=== PATIENT | female | born 1950 | race African-American/Black ===

== ENCOUNTER 2017-01-08 11:45 | Inpatient (IN) ==
[2017-01-08] MEDS ORDERED: DUONEB (A & A) INH ONE ×2 (11:56→12:30)
[2017-01-08] MEDS ORDERED: SOLU-MEDROL IV ONE (12:05)
[2017-01-08] MEDS ORDERED: ASPIRIN PO STA (12:05)
[2017-01-08 12:23] LABS: ALLEN TEST YES; BE 5.8 mmoll (-3.0-3.0); BLOOD TYPE ARTERIAL; DRAW SITE R RADIAL; METHB 0.9 % (0.0-1.5); O2(CT) 16.3 mL/dL (15.0-23.0); PCO2(98.6) 44 mmHg (35-45); PO2(98.6) 51 mmHg (60-100); SAMPLE BLOOD; SAO2 90.7 % (95.0-100.0); THB 13.2 g/dL (11.5-17.4); pH(98.6) 7.45 (7.35-7.45)
[2017-01-08 12:24] LABS: MODALITY ROOM AIR
[2017-01-08] MEDS ORDERED: PULMICORT INH ONE (12:30)
[2017-01-08 12:47] LABS: MANUAL DIFF NEEDED? NO
[2017-01-08 12:58] LABS: INR 0.93; PROTIME 9.7 Seconds (9.2-11.7); PTT 23.4 Seconds (22.0-36.0)
[2017-01-08 13:00] LABS: BASO% 0.5 % (0.0-0.8); EOS# 0.29 X1000 (0.0-0.7); EOS% 4.9 % (0.0-10.0); HEMATOCRIT 39.7 % (37.0-47.0); HEMOGLOBIN 12.6 g/dL (12.0-16.0); LYMPH# 1.68 X1000 (1.2-3.4); LYMPH% 28.6 % (20.5-51.1); MCH 29.4 PG (27-31); MCHC 31.7 g/dL (33-37); MCV 92.8 FL (81-99); MONO# 0.51 X1000 (0.11-0.59); MONO% 8.7 % (1.7-9.3); MPV 10.1 FL (7.4-10.4); NEUT% 57.3 % (42.2-75.2); PLT 245 X1000 (130-400); RBC 4.28 XMIL (4.2-5.4)
[2017-01-08 13:08] LABS: AGAP 14; ALBUMIN 4.2 g/dL (3.5-5.0); ALKALINE PHOSPHATASE 71 U/L (32-104); BUN 14 mg/dL (8-22); CALCIUM 9.2 mg/dL (8.8-10.2); CHLORIDE 101 mmol/L (98-107); CK PROFILE 162 U/L (24-173); COSMO 286; GOT 15 U/L (10-30); GPT 10 U/L (10-36); MAGNESIUM 2.1 mg/dL (1.5-2.7); POTASSIUM 4.1 mmol/L (3.5-5.1); SODIUM 144 mmol/L (136-145); TCO2 29 mmol/L (25-35); TOTAL BILIRUBIN 0.42 mg/dL (0.20-1.00); TOTAL PROTEIN 7.1 g/dL (6.3-8.3)
--- NOTE | 2017-01-08 13:18 | Diag Imaging Result Doc PS360 ---
EXAM: CHEST-2 VIEWS HISTORY: SOB TECHNIQUE: Two views of the chest COMMENT: The inspiration is less optimal than on the previous study of 10/01/2016. There is a hiatal hernia. Overall there has been no significant change since the previous study. IMPRESSION: Stable chest. Electronically signed by Linden Delgado 01/08/2017 1:15 PM
[2017-01-08 13:21] LABS: URINE CULTURE NEEDED? NO; URINE MICRO REVIEW NEEDED? NO; URINE SOURCE CLEAN CATCH
[2017-01-08 13:32] LABS: BILIRUBIN URINE NEGATIVE (NEGATIVE); BLOOD URINE NEGATIVE (NEGATIVE); COLOR STRAW; GLUCOSE URINE NEGATIVE (NEGATIVE); LEUKOCYTES URINE NEGATIVE (NEGATIVE); NITRITE URINE NEGATIVE (NEGATIVE); PH URINE 7.5; PROTEIN URINE NEGATIVE (NEGATIVE); TURBIDITY URINE CLEAR (CLEAR); UROBILINOGEN URINE NORMAL (NORMAL)
[2017-01-08 13:34] LABS: UR EPITHELIAL CELLS <10 /HPF (<10); URINE BACTERIA NEGATIVE /HPF; URINE RBC <10 /HPF (<10); URINE WBC <10 /HPF (<10)
--- NOTE | 2017-01-08 13:39 | ED EKG INTERP ---
This chart was entered by Tali Bloom Scribe, acting as scribe for Mabel Roberts MD. EKG Interpretation - EKG Time of EKG reading by physician:: 12:02 EKG Read and Signed by:: Mabel Roberts EKG Interpretation (*Must complete 3 of following elements*): Abnormal Rate: 94 Rhythm: normal sinus rhythm ST Wave: non-specific ST changes Comments: possible left atrial enlargement, abnormal ECG This chart was documented by the indicated scribe, (Tali Bloom Scribe) and accurately reflects the services I performed and decisions made by me, Mabel Roberts MD, as attested by the provider's signature.
--- NOTE | 2017-01-08 13:42 | PROVIDER DOCUMENTATION ---
This chart was entered by Tali Bloom Scribe, acting as scribe for Mabel Roberts MD. HPI-Respiratory General - General Chief Complaint: Shortness of Breath Stated Complaint: SOB Time Seen by Provider: 01/08/17 12:03 Source: patient Allergies/Adverse Reactions: Patient Allergies Allergy/AdvReac Type Severity Reaction Status Date / Time No Known Allergies Allergy Verified 06/08/16 11:39 Home Medications: Home Medication List Medication Instructions Recorded Confirmed Last Taken Type Albuterol Sulfate [Proair Hfa] 2 puff IH Q4-6H PRN PRN #1 04/18/14 09/27/16 07:00 Rx [email or web address] Losartan/Hydrochlorothiazide 1 tab PO DAILY 07/12/15 09/27/16 09/27/16 History [Losartan-Hctz 50-12.5 mg Tab] Pantoprazole [Protonix] 40 mg PO BID #60 tablet 12/29/15 09/27/16 09/27/16 Rx Budesonide/Formoterol Inhaler 2 puff INH PRN PRN 09/27/16 09/27/16 Unknown History [Symbicort 160/4.5 Microgm Inhaler] Albuterol 2.5MG/Ipratrop 0.5MG 3 ml INH Q2H PRN PRN #0 neb 10/01/16 Unknown Rx [Duoneb (A & A)] Albuterol 2.5MG/Ipratrop 0.5MG 3 ml INH RTQ4H #0 neb 10/01/16 Unknown Rx [Duoneb (A & A)] Albuterol 2.5MG/Ipratrop 0.5MG 3 ml INH RTQ4H #120 neb 10/01/16 Unknown Rx [Duoneb (A & A)] Azithromycin [Zithromax] 500 mg PO DAILY #5 tablet 10/01/16 Unknown Rx Methylprednisolone [Medrol Dosepak] 4 mg PO DIRECTED #1 package 10/01/16 Unknown Rx - History of Present Illness-Resp Nature of Presenting Problem: 66 year old female presents to the ER with complaint of SOB and chest pain x 2 days. Pt does have home breathing treatments which she has been using. Pt does have an audible wheeze. Onset/Duration: reports: 2 days ago Timing: reports: still present Cough Quality/Degree: reports: productive cough Current Respiratory Medication Therapy: Initiated A/A nebulizer, Initiated steroid inhaler Associated Symptoms: reports: chest pain/soreness, cough, shortness of breath, short of breath, wheezing Review of Systems - Adult - REVIEW OF SYSTEMS - ADULT Constitutional: denies: chills, fever Eyes: reports: no symptoms reported Ears, Nose, Mouth & Throat: reports: no symptoms reported Cardiovascular: reports: chest pain. denies: palpitations Respiratory: reports: cough, shortness of breath, wheezing Gastrointestinal: reports: no symptoms reported Genitourinary: reports: no symptoms reported Musculoskeletal: reports: no symptoms reported Integumentary: reports: no symptoms reported Neurological: reports: no symptoms reported Psychiatric: reports: no symptoms reported Endocrine: reports: no symptoms reported Hematologic/Lymphatic: reports: no symptoms reported Allergic/Immunologic: reports: no symptoms reported All Other Systems: Reviewed and Negative Past History - Adult - PAST MEDICAL HISTORY-ADULT Review of Records: reports: Nursing Assessment Review, Medications Reviewed Major Childhood Illnesses: reports: denies history Cardiovascular: reports: HTN Respiratory: reports: asthma, COPD Gastrointestinal: reports: denies history Obstetrical/Gynecological: reports: denies history Genitourinary: reports: denies history Musculoskeletal: reports: denies history Neurological: reports: denies history, TIA (pt family states she had slurred speech for 1 day ) Endocrine/Immune: reports: thyroid disorder Other Conditions: reports: denies history - PRIOR SURGERIES/PROCEDURES Surgical/Procedure History: reports: hysterectomy, BTL - IMMUNIZATION STATUS Childhood Immunizations: See Nurse Assessment Flu Vaccine: See Nurse Assessment - FAMILY HISTORY Family History: reviewed, not pertinent - SOCIAL HISTORY Smoking: quit greater than 1 year Physical Exam-General - CONSTITUTIONAL General Appearance: alert, no apparent distress - EYES Eyes: PERRL/EOMI, pink conjunctivae - HEAD, EARS, NOSE, MOUTH & THROAT HENMT: normocephalic/atraumatic, moist mucous membranes - NECK Neck: non-tender, normal inspection - RESPIRATORY Respiratory: accessory muscle use, wheezing - CARDIOVASCULAR Cardiovascular: normal peripheral pulses, regular rate, rhythm - MUSCULOSKELETAL Back Exam: no CVA tenderness, no vertebral tenderness Extremity: normal range of motion, normal inspection - SKIN Integumentary: normal color, warm/dry - NEUROLOGIC Neurologic: grossly normal, no motor/sensory deficits - PSYCHIATRIC Psych/Mental Status: normal mood/affect, normal thought content, normal thought process, oriented x 3 Progress - PLAN OF CARE/RESULTS Progress/Plan/Lab Results: Vital Signs - 8 hr 01/08/17 11:52 01/08/17 12:58 Temperature 98.5 F Pulse Rate 103 H 82 Respiratory Rate 20 20 Blood Pressure 146/88 O2 Sat by Pulse Oximetry 99 Laboratory Results - last 24 hr 01/08/17 01/08/17 01/08/17 12:15 12:30 12:30 WBC 5.88 RBC 4.28 Hgb 12.6 Hct 39.7 MCV 92.8 MCH 29.4 MCHC 31.7 L RDW Std Deviation 14.0 Plt Count 245 MPV 10.1 Neut % (Auto) 57.3 Lymph % (Auto) 28.6 [place] % (Auto) 8.7 Eos % (Auto) 4.9 Baso % (Auto) 0.5 Neut # (Auto) 3.37 Lymph # (Auto) 1.68 [place] # (Auto) 0.51 Eos # (Auto) 0.29 Baso # (Auto) 0.03 PT INR PTT (Actin FS) Specimen Type ARTERIAL Sample Site R RADIAL pH 7.45 pCO2 44 pO2 51 L HCO3 29.2 H Base Excess 5.8 H Oxyhemoglobin 87.9 L* ABG O2 Sat (Calculated) 16.3 ABG O2 Saturation 90.7 L ABG Carboxyhemoglobin 2.20 ABG Methemoglobin 0.9 Sourav Test YES A-a O2 Difference 44.0 Total Hemoglobin 13.2 Lactate 0.70 Liter Flow 0.0 Blood Gas Modality ROOM AIR FiO2 % 21.0 Sodium 144 Potassium 4.1 Chloride 101 Carbon Dioxide 29 Anion Gap 14 BUN 14 Creatinine 0.8 Estimated GFR/1.73 m2 > 60 BUN/Creatinine Ratio 18 Glucose 81 Calculated Osmolality 286 Calcium 9.2 Magnesium 2.1 Total Bilirubin 0.42 AST 15 ALT 10 Alkaline Phosphatase 71 Creatine Kinase 162 Troponin T Rad-Z-Zqrqtbvimit Pept Total Protein 7.1 Albumin 4.2 Globulin 2.9 Albumin/Globulin Ratio 1.4 Urine Source Urine Color Urine Turbidity Urine pH Ur Specific [place] Urine Protein Ur Glucose (Stick) Ur Ketones (Stick) Urine Blood Urine Nitrite Urine Bilirubin Urobilinogen Dipstick Urine Leukocytes Urine WBC (Auto) Urine RBC (Auto) U Epithel Cells (Auto) Urine Bacteria (Auto) 01/08/17 01/08/17 01/08/17 12:30 12:30 12:30 WBC RBC Hgb Hct MCV MCH MCHC RDW Std Deviation Plt Count MPV Neut % (Auto) Lymph % (Auto) [place] % (Auto) Eos % (Auto) Baso % (Auto) Neut # (Auto) Lymph # (Auto) [place] # (Auto) Eos # (Auto) Baso # (Auto) PT 9.7 INR 0.93 PTT (Actin FS) 23.4 Specimen Type Sample Site pH pCO2 pO2 HCO3 Base Excess Oxyhemoglobin ABG O2 Sat (Calculated) ABG O2 Saturation ABG Carboxyhemoglobin ABG Methemoglobin Sourav Test A-a O2 Difference Total Hemoglobin Lactate Liter Flow Blood Gas Modality FiO2 % Sodium Potassium Chloride Carbon Dioxide Anion Gap BUN Creatinine Estimated GFR/1.73 m2 BUN/Creatinine Ratio Glucose Calculated Osmolality Calcium Magnesium Total Bilirubin AST ALT Alkaline Phosphatase Creatine Kinase Troponin T < 0.010 Viq-P-Iyfwncinwth Pept 100 Total Protein Albumin Globulin Albumin/Globulin Ratio Urine Source Urine Color Urine Turbidity Urine pH Ur Specific [place] Urine Protein Ur Glucose (Stick) Ur Ketones (Stick) Urine Blood Urine Nitrite Urine Bilirubin Urobilinogen Dipstick Urine Leukocytes Urine WBC (Auto) Urine RBC (Auto) U Epithel Cells (Auto) Urine Bacteria (Auto) 01/08/17 13:04 WBC RBC Hgb Hct MCV MCH MCHC RDW Std Deviation Plt Count MPV Neut % (Auto) Lymph % (Auto) [place] % (Auto) Eos % (Auto) Baso % (Auto) Neut # (Auto) Lymph # (Auto) [place] # (Auto) Eos # (Auto) Baso # (Auto) PT INR PTT (Actin FS) Specimen Type Sample Site pH pCO2 pO2 HCO3 Base Excess Oxyhemoglobin ABG O2 Sat (Calculated) ABG O2 Saturation ABG Carboxyhemoglobin ABG Methemoglobin Sourav Test A-a O2 Difference Total Hemoglobin Lactate Liter Flow Blood Gas Modality FiO2 % Sodium Potassium Chloride Carbon Dioxide Anion Gap BUN Creatinine Estimated GFR/1.73 m2 BUN/Creatinine Ratio Glucose Calculated Osmolality Calcium Magnesium Total Bilirubin AST ALT Alkaline Phosphatase Creatine Kinase Troponin T [id number]-Etcnwxrssvu Pept Total Protein Albumin Globulin Albumin/Globulin Ratio Urine Source CLEAN CATCH Urine Color STRAW Urine Turbidity CLEAR Urine pH 7.5 Ur Specific [place] 1.010 Urine Protein NEGATIVE Ur Glucose (Stick) NEGATIVE Ur Ketones (Stick) NEGATIVE Urine Blood NEGATIVE Urine Nitrite NEGATIVE Urine Bilirubin NEGATIVE Urobilinogen Dipstick NORMAL Urine Leukocytes NEGATIVE Urine WBC (Auto) <10 Urine RBC (Auto) <10 U Epithel Cells (Auto) <10 Urine Bacteria (Auto) NEGATIVE Orders Category Date Time Status Cardiac Monitoring DIRECTED Care 01/08/17 12:05 Active Oxygen Therapy- ED Nursing DIRECTED Care 01/08/17 11:56 Active Saline Loc DIRECTED Care 01/08/17 11:56 Active Saline Loc NOW Care 01/08/17 12:05 Active cxr [CHEST-2 VIEWS] [RAD] Stat Exams 01/08/17 11:57 Completed ABG [RESP] Routine Lab 01/08/17 12:15 Completed CBC WITH ELECTRONIC DIFF [HEME] Stat Lab 01/08/17 12:30 Completed CK PROFILE [SP CHEM] Stat Lab 01/08/17 12:30 Completed COMPREHENSIVE METABOLIC PANEL [CHEM] Stat Lab 01/08/17 12:30 Completed MAGNESIUM [CHEM] Stat Lab 01/08/17 12:30 Completed PRO B-NATRIURETIC PEPTIDE Stat Lab 01/08/17 12:30 Completed PROTIME WITH INR [COAG] Stat Lab 01/08/17 12:30 Completed PTT [COAG] Stat Lab 01/08/17 12:30 Completed TROPONIN T Stat Lab 01/08/17 12:30 Completed UA NIMS W/REFLEX CULT [URINALYSIS] Stat Lab 01/08/17 13:04 Completed Albuterol 2.5MG/Ipratrop 0.5MG [Duoneb (A & A)] Med 01/08/17 11:56 Discontinued 3 ml INH NOW ONE Albuterol 2.5MG/Ipratrop 0.5MG [Duoneb (A & A)] Med 01/08/17 12:30 Discontinued 6 ml INH NOW ONE Aspirin Med 01/08/17 12:05 Discontinued 325 mg PO STAT STA Budesonide [Pulmicort] Med 01/08/17 12:30 Discontinued 0.5 mg INH NOW ONE Methylprednisolone Sod Succ [Solu-Medrol] Med 01/08/17 12:05 Discontinued 125 mg IV NOW ONE Aerosol Treatments Routine Oth 01/08/17 11:56 Active Aerosol Treatments Routine Oth 01/08/17 12:30 Active Aerosol Treatments Stat Oth 01/08/17 11:56 Active Aerosol Treatments Stat Oth 01/08/17 11:56 Active Aerosol Treatments Stat Oth 01/08/17 12:30 Active Pulse Oximetry Stat Oth 01/08/17 11:56 Active EKG [EKG] Stat Ther 01/08/17 11:56 Ordered Result Diagrams: 01/08/17 12:30 01/08/17 12:30 - REASSESSMENT Reassessment #1 Time Reassessed: 13:40 Status: unchanged (Pt is on 2L NC and SO2=99%. After Duoneb X 3 with one dose pulmocort, pt is still audible wheezing with retractions seen at b/l neck base. Pt was admitted previously for COPD exacerbation and possible intubated as well. ) Departure - Departure Time of Disposition Decision: 13:40 DIAGNOSIS: COPD exacerbation, Hypoxia Disposition: ADMITTED INPATIENT 09 Certified Medical Emergency: Emergent Condition: Stable - Critical Care Note This patient required my direct & personal management of CC.: No This chart was documented by the indicated scribe, (Tali Bloom, Scribe) and accurately reflects the services I performed and decisions made by me, Mabel Roberts MD, as attested by the provider's signature.
[2017-01-08] MEDS ORDERED: DUONEB (A & A) INH PRN (16:16)
[2017-01-08] MEDS ORDERED: SYMBICORT 160/4.5 MICROGM INHALER INH PRN (16:16)
[2017-01-08] MEDS ORDERED: VENTOLIN HFA INH PRN (16:16)
[2017-01-08] MEDS: LOVENOX SUBQ SCH (16:59)
[2017-01-08] MEDS: ROCEPHIN 1 GM/NS 1 GM/50 ML IVPB IV SCH (17:00)
[2017-01-08] MEDS: PROTONIX PO SCH (18:29)
[2017-01-08] MEDS: SOLU-MEDROL IV SCH (21:28)
--- NOTE | 2017-01-08 22:30 | HISTORY AND PHYSICAL ---
CHIEF COMPLAINT: Shortness of breath and wheezing. HISTORY OF PRESENT ILLNESS: Mrs. Thornton is a 66-year-old female with a known history of COPD, hypothyroidism, hypertension, who presents today with 3 days of progressive shortness of breath and wheezing. She denies any fevers or chills. She has a dry cough. She reports occasional chest pain but only with cough. She denies any abdominal pain, nausea, vomiting, or diarrhea. No lower extremity edema. No orthopnea. She came to the ER today for evaluation. Chest x-ray shows suboptimal inspiration but nothing acute. Her laboratory data is largely unremarkable with the exception of her ABG which shows hypoxic respiratory failure. As such, she is going to be admitted to the hospital for acute on chronic respiratory failure secondary to COPD exacerbation. PAST MEDICAL HISTORY: 1. COPD. 2. Tobacco dependence, recently quit 2 months ago. 3. Hypertension. 4. Hypothyroidism. 5. Esophagitis, erosive gastritis. SURGICAL HISTORY: Hysterectomy and tubal ligation. SOCIAL HISTORY: Patient quit smoking cigarettes 2 months ago. She denies illicit drug use or alcohol use. REVIEW OF SYSTEMS: Fourteen point review of systems obtained and found to be negative with the exception of the HPI. ALLERGIES: No known drug allergies. HOME MEDICATIONS: DuoNeb as needed, albuterol 2 puffs inhaled every 4-6 hours, Symbicort 160/4.5 mcg 2 puffs inhaled as needed, losartan/hydrochlorothiazide 1 daily, Protonix 40 mg b.i.d. PHYSICAL EXAMINATION: VITAL SIGNS: Blood pressure is 137/77, heart rate 89, respiratory rate 22, O2 saturation 98% on room air, temperature is 98.5. GENERAL: This is a well-developed, well-nourished female lying in hospital bed in no acute distress. NEUROLOGIC: The patient is awake, alert, and oriented. She follows commands without focal deficits. HEENT: Head atraumatic and normocephalic. Her pupils are equal, round, reactive to light. Oral mucosa is moist. Trachea is midline. No JVD or carotid bruits. CHEST: Severely diminished throughout with inspiratory and expiratory wheezing. No increased work of breathing noted. CV: Regular rate and rhythm. S1-S2 is noted. No murmurs, gallops, clicks, rubs. GI: Soft, nondistended, nontender. Bowel sounds are positive. EXTREMITIES: Without edema, clubbing or cyanosis. Pulses are palpable bilaterally. DIAGNOSTIC DATA: Chest x-ray shows suboptimal inspiration but nothing acute. EKG, normal sinus rhythm with nonspecific ST changes. WBC 5.88, hemoglobin 12.6, hematocrit 39.7 , platelet count 245,000, INR 0.93. ABG on room air pH 7.45, CO2 44, O2 51, bicarb 29.2, oxyhemoglobin 87.9, lactate 0.7. Chemistry nothing acute. Urinalysis is negative for acute process. ASSESSMENT/PLAN: 1. Acute on chronic respiratory failure: Secondary to chronic obstructive pulmonary disease exacerbation. She will be treated with oxygen, nebulizers, steroids, IV fluids and antibiotics. Will check an ABG in the morning. 2. Chronic obstructive pulmonary disease exacerbation: As above. 3. Hypertension: Chronic and stable, continue home medications. 4. Hypothyroidism: Will check thyroid function. She is not on any thyroid replacement at this time. 5. Gastroesophageal reflux disease. Continue her Protonix. 6. Deep vein thrombosis prophylaxis with Lovenox. Further recommendations to follow. Dictated by MANUELA Montes for Genesis Humphreys MD cc: MANUELA Montes MD [facility]
[2017-01-09] MEDS: SOLU-MEDROL IV SCH ×3 (05:54→22:00)
--- NOTE | 2017-01-09 06:05 | EKG Report ---
Test Performed on : 01/08/2017 12:03:09 PM Test Reason : Blood Pressure : / mmHG Vent. Rate : 092 BPM Atrial Rate : 092 BPM P-R Int : 142 ms QRS Dur : 082 ms QT Int : 390 ms P-R-T Axes : 078 047 079 degrees QTc Int : 482 ms Normal sinus rhythm. Possible Left atrial enlargement Borderline ECG When compared with ECG of 08-JAN-2017 12:02, (Unconfirmed) No significant change was found Unconfirmed Result
[2017-01-09] MEDS: PROTONIX PO SCH ×2 (06:14→18:25)
[2017-01-09 07:11] LABS: HEMOGLOBIN 12.4 g/dL (12.0-16.0); MCH 28.9 PG (27-31); MCHC 31.8 g/dL (33-37); MCV 90.9 FL (81-99); MPV 9.9 FL (7.4-10.4); RBC 4.29 XMIL (4.2-5.4)
[2017-01-09 07:25] LABS: AGAP 10; BUN 15 mg/dL (8-22); CALCIUM 8.9 mg/dL (8.8-10.2); CHLORIDE 104 mmol/L (98-107); COSMO 287; HDL 78 mg/dL (45-65); LDL 93 mg/dL; POTASSIUM 4.4 mmol/L (3.5-5.1); SODIUM 143 mmol/L (136-145); TCO2 29 mmol/L (25-35); TRIGLYCERIDES 44 mg/dL (35-135); VLDL 9 mg/dL
[2017-01-09] MEDS: HYZAAR 50/12.5 MG PO SCH (09:15)
[2017-01-09] MEDS: DUONEB (A & A) INH SCH ×7 (15:52→23:08)
--- NOTE | 2017-01-09 16:56 | PROGRESS NOTE ---
DATE: 01/09/2017 SUBJECTIVE: Patient has no focal complaints. OBJECTIVE: Vital signs: Blood pressure 121/60, heart rate of 79, respiratory rate 16, temperature 98.3 degrees. Cardiovascular: Regular rate and rhythm. Pulmonary: Occasional rhonchi. GI: Soft, nontender, nondistended. Bowel sounds are positive. LABORATORY DATA: Normal white count. Normal electrolytes. LDL was 93. PROBLEM LIST: 1. Acute chronic obstructive pulmonary disease exacerbation. She seems to be clinically improving. I am going to wean her steroids. Change her Symbicort to scheduled and not p.r.n. and follow clinically. 2. Acute respiratory failure. She appears to be improving. Wean O2 as tolerated. She is very adamant about getting a pulmonary evaluation. She had an admission in September and last one was in December; they are not that frequent. But I cannot tell that she has seen a document restorer in the past. 3. Disposition. Pending her clinical course. She is on day 2 of Rocephin. cc: Dewey Elizabeth MD
[2017-01-09] MEDS: LOVENOX SUBQ SCH (18:24)
[2017-01-09] MEDS: ROCEPHIN 1 GM/NS 1 GM/50 ML IVPB IV SCH (18:25)
[2017-01-09] MEDS: SYMBICORT 160/4.5 MICROGM INHALER INH SCH (19:40)
[2017-01-10] MEDS: DUONEB (A & A) INH SCH ×6 (03:38→23:10)
--- NOTE | 2017-01-10 05:00 | CONSULTATION ---
DATE OF CONSULTATION: 01/09/2017 REQUESTING PHYSICIAN: Dewey Elizabeth MD REASON FOR CONSULTATION: COPD. HISTORY OF PRESENT ILLNESS: Ms. Thornton is a 66-year-old black female with a 50-pack year history for tobacco (nonsmoker x2 months due to increasing dyspnea) who reports lifelong history of asthma. The patient reports difficulty as a child. She reports difficulty in the spring and the fall with triggers including pollen. The patient reports over the last several days. She has had increased cough increased shortness of breath. The patient presented to the emergency room in hypoxemic respiratory failure with diffuse wheezing. PAST MEDICAL HISTORY: 1. Asthma/COPD. 2. Hypertension. 3. Hypothyroidism. 4. Hiatal hernia. Identified on CT scan of the thorax in May 2016. 5. History of esophagitis/gastritis. MEDICATIONS: Listed at home include losartan and hydrochlorothiazide, Protonix, Symbicort, albuterol and DuoNebs. However, I am not clear that she is using Symbicort. REVIEW OF SYSTEMS: Notable for increasing shortness of breath. Increasing nocturnal arousals due to shortness of breath and chest tightness. PHYSICAL EXAMINATION: General: Reveals a thin black female, resting comfortably, and in no distress. Vital Signs: Blood pressure 121/60, heart rate 79, respiration rate 16, oxygen saturation 96% on 2 L per nasal cannula. HEENT: Pupils are equal and reactive. Oropharynx is clear. Neck: Supple. Chest: Reveals prolonged expiratory phase with scattered wheezing. Cardiac: Distant heart sounds. Normal S1, normal S2. Abdomen: Soft without hepatosplenomegaly. Extremities: Without edema. LABORATORIES/DIAGNOSTIC DATA: Arterial blood gas in the emergency room reveals a pH 7.45, pCO2 of 44, PO2 of 51. Her carboxyhemoglobin level is normal. White blood count on admission 5.88. Hemoglobin 12.6, platelet count 245,000. She has a normal differential without eosinophilia. Chest x-ray in the emergency room revealed hiatal hernia but no acute changes. IMPRESSION: A 66-year-old with asthma/chronic obstructive pulmonary disease exacerbation. Patient likely has an overlap syndrome given her history. Possible contributing factors including high pollen counts which are currently present in the community. Other possible contributing factors include a [id number] hiatal hernia. RECOMMENDATIONS: 1. Continue treatment for exacerbation as you are doing. 2. I will ask Leda Case, the medical student to review her Symbicort technique. 3. Reflux precautions given hiatal hernia. 4. Encouraged continued smoking cessation. 5. Recommend outpatient pulmonary function studies in 4-6 weeks after she has improved. cc: MD Joseph Pena MD
[2017-01-10] MEDS: PROTONIX PO SCH ×2 (06:50→18:21)
[2017-01-10] MEDS: SOLU-MEDROL IV SCH ×3 (06:50→16:36)
[2017-01-10 06:54] LABS: HEMATOCRIT 37.3 % (37.0-47.0); MCH 29.3 PG (27-31); MCHC 32.2 g/dL (33-37); RBC 4.1 XMIL (4.2-5.4)
[2017-01-10 07:04] LABS: AGAP 11; BUN 23 mg/dL (8-22); CALCIUM 8.7 mg/dL (8.8-10.2); CHLORIDE 103 mmol/L (98-107); COSMO 287; MAGNESIUM 2.3 mg/dL (1.5-2.7); POTASSIUM 4.3 mmol/L (3.5-5.1); SODIUM 142 mmol/L (136-145); TCO2 28 mmol/L (25-35)
[2017-01-10] MEDS: SYMBICORT 160/4.5 MICROGM INHALER INH SCH ×2 (07:25→19:20)
[2017-01-10] MEDS: HYZAAR 50/12.5 MG PO SCH (10:00)
--- NOTE | 2017-01-10 14:57 | PROGRESS NOTE ---
DATE: 01/10/2017 SUBJECTIVE: Patient has no focal complaints. She is just sitting upright in bed, does not appear to be in any distress. OBJECTIVE: Vital Signs: Blood pressure 136/70, heart rate 73, respiratory rate 18, temperature 97.4 degrees, 100% saturation on 2 L. Cardiovascular: Regular rate and rhythm. Pulmonary: She does have some rales at the right base. I appreciate more on today's exam than previously, and her x-ray was really unremarkable on the . So may be an early infiltrate pain, some peribronchial cuffing, nothing real impressive I guess. PROBLEM LIST: Chronic obstructive pulmonary disease exacerbation. Will continue nebs. I am going to continue to wean steroids. Clinically she seems stable. I do not think she will qualify for oxygen but we will evaluate for that, and I am going to go and repeat her x-ray and follow. DISPOSITION: Clinically I think she is doing well. She is kind of an anxious person, but I think are going to reach the limits of what we can do as an inpatient, so plan is for discharge tomorrow if she is stable, of course pending Dr. Martinez's recommendations. cc: Dewey Elizabeth MD
--- NOTE | 2017-01-10 16:38 | Diag Imaging Result Doc PS360 ---
EXAM: CHEST-2 VIEWS - 01/10/2017 HISTORY: hypoxia TECHNIQUE: Chest two views COMPARISON: 01/08/2017 FINDINGS: Heart size appears upper normal and stable. There is mild subsegmental atelectasis at the posterior base of the chest visible on the lateral view. The lungs otherwise appear clear. There is no vascular congestion, pleural effusion, or pneumothorax identified. IMPRESSION: Mild subsegmental atelectasis at posterior base of chest. No other evidence of acute disease. Electronically signed by Joseph Foy 01/10/2017 4:36 PM
[2017-01-10] MEDS: LOVENOX SUBQ SCH (16:39)
[2017-01-10] MEDS: ROCEPHIN 1 GM/NS 1 GM/50 ML IVPB IV SCH (16:39)
[2017-01-11] MEDS: SOLU-MEDROL IV SCH ×2 (02:29→15:34)
[2017-01-11] MEDS: DUONEB (A & A) INH SCH ×3 (03:30→11:47)
[2017-01-11 06:45] LABS: HEMATOCRIT 37.9 % (37.0-47.0); HEMOGLOBIN 12.1 g/dL (12.0-16.0); MCH 29.1 PG (27-31); MCHC 31.9 g/dL (33-37); MCV 91.1 FL (81-99); MPV 10.2 FL (7.4-10.4); RBC 4.16 XMIL (4.2-5.4)
[2017-01-11 07:06] LABS: AGAP 14; BUN 20 mg/dL (8-22); CALCIUM 8.6 mg/dL (8.8-10.2); CHLORIDE 102 mmol/L (98-107); COSMO 291; MAGNESIUM 2.2 mg/dL (1.5-2.7); POTASSIUM 4.1 mmol/L (3.5-5.1); SODIUM 144 mmol/L (136-145); TCO2 28 mmol/L (25-35)
[2017-01-11] MEDS: SYMBICORT 160/4.5 MICROGM INHALER INH SCH (07:35)
[2017-01-11 08:09] VITALS: BP 148/78
[2017-01-11] MEDS: HYZAAR 50/12.5 MG PO SCH (08:38)
[2017-01-11] MEDS: PROTONIX PO SCH (08:38)
--- NOTE | 2017-01-11 17:53 | DISCHARGE SUMMARY ---
ADMISSION DATE: 01/08/2017 DISCHARGE DATE: 01/11/2017 CONSULTATIONS: Dustin Martinez MD with pulmonology. PERTINENT PROCEDURES: Chest x-ray, stable. DISCHARGE DIAGNOSES: 1. Chronic obstructive pulmonary disease exacerbation. Clinically stable. Will continue on home medications. 2. Acute on chronic respiratory failure secondary to chronic obstructive pulmonary disease. Patient will be discharged on p.o. antibiotics and a Medrol dose pack. 3. Hypertension, chronic and stable. 4. Hypothyroidism. The patient remains not on any thyroid replacement. 5. Gastroesophageal reflux disease. Continue Protonix. HOSPITAL COURSE: Ms. Thornton is a 66-year-old, female with a history of COPD, hypothyroidism, hypertension, presented to the ED with 3 days of progressive shortness of breath and wheezing. Chest x-ray showed suboptimal inspiration, but nothing acute. Laboratory data was largely unremarkable with the exception of her ABG which showed hypoxemic respiratory failure. The patient was admitted to the hospital for acute on chronic respiratory failure secondary to COPD exacerbation. She was placed on supplemental O2, bronchodilators, IV steroids, IV fluids as well as IV antibiotics. She was also followed by Dr. Martinez who encouraged continued smoking cessation. The patient does have a 50 pack-year history for tobacco. She has been a nonsmoker now x2 months due to increased dyspnea, as well as a lifelong history of asthma. Clinically, the patient has improved. Dr. Martinez is okay with discontinue on oral steroid taper. He can see the patient on p.r.n. basis. Dr. Paniagua has assessed Ms. Thornton, feels she is appropriate for discharge. VITAL SIGNS: Temperature is 98.2, heart rate 73, respirations 18, blood pressure 148/78, O2 is 100% on room air. DISCHARGE MEDICATIONS: As per Dr. Paniagua. Please see MAR. DISCHARGE DIET: Healthy heart. FOLLOWUP: The patient is being discharged home with self care. She will continue on her inhalers as well as her p.o. antibiotics and a steroid dose pack. The patient can return to the ED for any worsening of symptoms. It has been discussed with her daily about the continuation of her smoking cessation. Dictated by MANUELA Au for Lester Smith MD cc: Lester Smith MD
== END 2017-01-11 15:35 | disposition home or self-care (01) ==
LOC: ED 11:45 → 3N 14:51 → SUATTDRO 14:51
PROVIDERS: ATTEND Internal Medicine

== ENCOUNTER 2017-02-10 08:20 | Observation (INO) ==
[2017-02-10] MEDS ORDERED: ASPIRIN PO STA (08:33)
[2017-02-10] MEDS ORDERED: DUONEB (A & A) INH ONE ×2 (08:35→14:28)
--- NOTE | 2017-02-10 08:39 | EKG Report ---
Test Performed on : 02/10/2017 08:27:10 AM Test Reason : sob Blood Pressure : / mmHG Vent. Rate : 096 BPM Atrial Rate : 096 BPM P-R Int : 140 ms QRS Dur : 082 ms QT Int : 368 ms P-R-T Axes : 080 043 109 degrees QTc Int : 464 ms Normal sinus rhythm. Possible Left atrial enlargement ST \T\ T wave abnormality, consider lateral ischemia Abnormal ECG When compared with ECG of 08-JAN-2017 12:03, T wave inversion now evident in Anterolateral leads Unconfirmed Result
[2017-02-10 08:55] LABS: MANUAL DIFF NEEDED? NO
--- NOTE | 2017-02-10 09:01 | Diag Imaging Result Doc PS360 ---
EXAM: CHEST-2 VIEWS HISTORY: CP TECHNIQUE: 01/10/2017 COMPARISON: None. FINDINGS: The lungs are well expanded. There is an air-filled density behind the heart believed to be a small hiatal hernia. The heart is not enlarged. The vessels are not distended. No pneumonia. No pleural effusions. IMPRESSION: Stable chest. Electronically signed by Cali Golden 02/10/2017 8:59 AM
[2017-02-10 09:03] LABS: EOS# 0.39 X1000 (0.0-0.7); EOS% 6.6 % (0.0-10.0); HEMATOCRIT 39.8 % (37.0-47.0); HEMOGLOBIN 12.7 g/dL (12.0-16.0); LYMPH# 1.71 X1000 (1.2-3.4); LYMPH% 28.8 % (20.5-51.1); MCH 28.8 PG (27-31); MCHC 31.9 g/dL (33-37); MCV 90.2 FL (81-99); MONO# 0.48 X1000 (0.11-0.59); MONO% 8.1 % (1.7-9.3); MPV 10.3 FL (7.4-10.4); NEUT% 55.5 % (42.2-75.2); PLT 345 X1000 (130-400); RBC 4.41 XMIL (4.2-5.4)
[2017-02-10 09:14] LABS: INR 0.96; PTT 23.3 Seconds (22.0-36.0)
[2017-02-10 09:22] LABS: AGAP 16; ALBUMIN 4.4 g/dL (3.5-5.0); ALKALINE PHOSPHATASE 84 U/L (32-104); BUN 10 mg/dL (8-22); CALCIUM 9.3 mg/dL (8.8-10.2); CHLORIDE 98 mmol/L (98-107); COSMO 286; GOT 16 U/L (10-30); GPT 11 U/L (10-36); MAGNESIUM 2.1 mg/dL (1.5-2.7); POTASSIUM 3.7 mmol/L (3.5-5.1); SODIUM 143 mmol/L (136-145); TCO2 29 mmol/L (25-35); TOTAL BILIRUBIN 0.26 mg/dL (0.20-1.00); TOTAL PROTEIN 7.6 g/dL (6.3-8.3)
[2017-02-10 09:35] LABS: CK PROFILE 180 U/L (24-173)
[2017-02-10 09:52] LABS: CK INDEX 2.2 (0.0-2.5); CK-MB 3.99 ng/mL (0.0-5.0)
[2017-02-10] MEDS ORDERED: DECADRON IV ONE (14:29)
[2017-02-10] MEDS ORDERED: ZOFRAN IV PRN (16:55)
[2017-02-10] MEDS: NS 1,000 ML IV SCH (18:02)
[2017-02-10] MEDS: SOLU-MEDROL IV SCH (18:02)
[2017-02-10] MEDS: LOVENOX SUBQ SCH (18:03)
[2017-02-10] MEDS: ZITHROMAX 500 MG/NS 500 MG/250 ML IVPB IV SCH (18:47)
[2017-02-10] MEDS: TYLENOL PO PRN (20:20)
[2017-02-11] MEDS: SOLU-MEDROL IV SCH ×3 (01:16→16:54)
[2017-02-11] MEDS: TYLENOL PO PRN ×3 (08:38→23:37)
[2017-02-11] MEDS: NS 1,000 ML IV SCH (08:50)
[2017-02-11 11:39] LABS: MANUAL DIFF NEEDED? NO
[2017-02-11 12:00] LABS: BASO% 0.2 % (0.0-0.8); HEMATOCRIT 40.3 % (37.0-47.0); HEMOGLOBIN 12.9 g/dL (12.0-16.0); IMM GRAN# 0.02 X1000 (0.0-0.04); IMM GRAN% 0.2 % (0.0-0.5); LYMPH# 1.05 X1000 (1.2-3.4); LYMPH% 12.3 % (20.5-51.1); MCH 28.7 PG (27-31); MCV 89.8 FL (81-99); MONO# 0.29 X1000 (0.11-0.59); MONO% 3.4 % (1.7-9.3); MPV 10.4 FL (7.4-10.4); NEUT% 83.9 % (42.2-75.2); PLT 358 X1000 (130-400); RBC 4.49 XMIL (4.2-5.4)
[2017-02-11 12:08] LABS: AGAP 17; BUN 20 mg/dL (8-22); CALCIUM 9.4 mg/dL (8.8-10.2); CHLORIDE 103 mmol/L (98-107); COSMO 289; POTASSIUM 4.7 mmol/L (3.5-5.1); SODIUM 143 mmol/L (136-145); TCO2 23 mmol/L (25-35)
--- NOTE | 2017-02-11 14:09 | Diag Imaging Result Doc PS360 ---
CHEST-2 VIEWS - 02/11/2017 INDICATION: hypoxia TECHNIQUE: COMPARISON: 02/10/2017 FINDINGS: The lungs are normally expanded and clear. Heart size and mediastinal contours are normal. No pneumothorax or pleural effusion. IMPRESSION: Negative exam. Electronically signed by Abdoul Holman 02/11/2017 2:07 PM
[2017-02-11] MEDS ORDERED: HYZAAR 50/12.5 MG PO ONE (15:42)
[2017-02-11] MEDS ORDERED: DUONEB (A & A) INH PRN (16:04)
[2017-02-11] MEDS: DUONEB (A & A) INH SCH ×2 (16:24→21:46)
[2017-02-11] MEDS: LOVENOX SUBQ SCH (16:47)
--- NOTE | 2017-02-11 18:24 | HISTORY AND PHYSICAL ---
CHIEF COMPLAINT: Shortness of breath, cough. HISTORY OF PRESENT ILLNESS: This is a 66-year-old female with history of COPD who presents from home with worsening shortness of breath, cough x4 days. She had a fever onset yesterday. Cough is yellowish whitish sputum. She has had significant wheezing. She came in for evaluation. She was given Decadron, breathing treatments but still had protracted wheezing so she was she was admitted for a COPD exacerbation. She denied any smoking history but she quit tobacco only about 2 months ago and she only smoked about 3 or 4 cigarettes before that although I think she smoked more in the past, more consistent with COPD than asthma. PAST MEDICAL HISTORY: 1. Chronic obstructive pulmonary disease. 2. Hypertension. PAST SURGICAL HISTORY: Hernia repair. FAMILY HISTORY: Reviewed. Noncontributory. SOCIAL HISTORY: Again no tobacco for 2 months but she has probably used tobacco for at least 10- 15 years. REVIEW OF SYSTEMS: Negative. PHYSICAL EXAMINATION: VITAL SIGNS: Blood pressure was 147/62, heart rate of 81, respiratory rate 20, temperature 97.9 degrees. GENERAL: A well-developed female, in no acute distress. HEAD: Normocephalic, atraumatic. EYES: Pupils equal, round, reactive to light. Extraocular movements were intact. EAR/NOSE/THROAT: Moist mucous membranes. NECK: Supple. CARDIOVASCULAR EXAM: Regular rate and rhythm. No murmurs, gallops, or rubs. PULMONARY: Bilateral breath sounds. Clear to auscultation. GI: Soft, nontender, nondistended. Bowel sounds are positive. EXTREMITIES: No clubbing or cyanosis. LYMPHATICS: No peripheral edema. NEUROLOGICAL: Nonfocal. LABORATORY DATA: She had no white count. Chest x-ray was clear. CMP was okay. ASSESSMENT: This is a 66-year-old female with history of tobacco abuse, likely COPD with COPD exacerbation. 1. Chronic obstructive pulmonary disease exacerbation. Continue nebulizer treatments. We will initiate empiric antibiotics because it is most likely COPD, breathing treatments and IV steroids and follow clinically. 2. Hypertension. Resume her blood pressure medications once verified. 3. Disposition pending her clinical course. cc: MD Dr. Ramses Logan
[2017-02-11] MEDS: ZITHROMAX 500 MG/NS 500 MG/250 ML IVPB IV SCH (18:30)
[2017-02-11] MEDS: PROTONIX PO SCH (21:27)
[2017-02-12] MEDS: SOLU-MEDROL IV SCH ×2 (02:51→10:28)
[2017-02-12] MEDS: DUONEB (A & A) INH SCH ×3 (03:52→15:42)
[2017-02-12] MEDS: PROTONIX PO SCH (06:07)
[2017-02-12 06:27] LABS: HEMATOCRIT 35.3 % (37.0-47.0); HEMOGLOBIN 11.3 g/dL (12.0-16.0); MCH 29.4 PG (27-31); MCV 91.9 FL (81-99); MPV 10.4 FL (7.4-10.4); RBC 3.84 XMIL (4.2-5.4)
[2017-02-12 07:07] LABS: AGAP 12; BUN 15 mg/dL (8-22); CALCIUM 8.9 mg/dL (8.8-10.2); CHLORIDE 106 mmol/L (98-107); COSMO 291; MAGNESIUM 2.3 mg/dL (1.5-2.7); POTASSIUM 3.8 mmol/L (3.5-5.1); SODIUM 145 mmol/L (136-145); TCO2 27 mmol/L (25-35)
[2017-02-12] MEDS: TYLENOL PO PRN (07:46)
[2017-02-12] MEDS ORDERED: HYZAAR 50/12.5 MG PO SCH (15:00)
[2017-02-12 15:56] VITALS: BP 148/58
[2017-02-12] MEDS: LOVENOX SUBQ SCH (15:59)
--- NOTE | 2017-02-17 22:44 | DISCHARGE SUMMARY ---
ADMISSION DATE: 02/10/2017 DISCHARGE DATE: 02/12/2017 DISCHARGE DIAGNOSES: 1. Chronic obstructive pulmonary disease exacerbation. 2. Hypertension. HOSPITAL COURSE: Briefly the patient was admitted on the for shortness of breath. She has a history of COPD, smoking history, she had issues with fever, shortness of breath. She came in for evaluation. Was placed on Decadron and breathing treatments. Chest x-ray was clear. She was maintained on her regular medications. The following day she had improved somewhat, wheezing had overall improved. Steroids were further weaned. She had been placed on azithromycin. On the her vital signs were stable. She had discussed about outpatient home oxygen which she was evaluated for and did not qualify, saturations were 99% on room air. She was felt stable for discharge. DISCHARGE MEDICATIONS: DuoNeb q.6, azithromycin 500 daily for another 3 days, she had 3 days in the hospital, losartan/hydrochlorothiazide 50/12.5 daily, Protonix 40 b.i.d. she had been on that before and a prednisone taper. DISCHARGE CONDITION: Stable. FOLLOWUP: Should follow up with her PCP in 1 week. Return for worsening shortness of breath. TIME SPENT: 35 minute discharge. cc: Joseph Pearce MD
--- NOTE | 2017-02-20 11:28 | ED EKG INTERP ---
This chart was entered by Carla Prince Scribe, acting as scribe for Primo Sanders MD. EKG Interpretation - EKG Time of EKG reading by physician:: 08:27 EKG Read and Signed by:: Primo Sanders EKG Interpretation (*Must complete 3 of following elements*): Abnormal (ST&T wave abnormality, consider lateral ischemia) Rate: 96 Rhythm: normal sinus rhythm Comments: possible left atrial enlargement; This chart was documented by the indicated scribe, (Carla Prince Scribe) and accurately reflects the services I performed and decisions made by Tommy silverman Christophe I, MD, as attested by the provider's signature.
--- NOTE | 2017-02-20 11:28 | PROVIDER DOCUMENTATION ---
This chart was entered by Carla Prince Scribe, acting as scribe for Primo Sanders MD. HPI-Respiratory General - General Chief Complaint: Shortness of Breath Stated Complaint: sob,copd,asthma Time Seen by Provider: 02/10/17 08:33 Source: patient Allergies/Adverse Reactions: Patient Allergies Allergy/AdvReac Type Severity Reaction Status Date / Time No Known Allergies Allergy Verified 02/10/17 17:29 Home Medications: Home Medication List Medication Instructions Recorded Confirmed Last Taken Type Losartan/Hydrochlorothiazide 1 tab PO DAILY 07/12/15 02/10/17 01/08/17 07:00 History [Losartan-Hctz 50-12.5 mg Tab] 1 TAB Pantoprazole [Protonix] 40 mg PO BID #60 tablet 12/29/15 02/10/17 01/08/17 07: 00 Rx 40 MG Albuterol 2.5MG/Ipratrop 0.5MG 3 ml INH RTQ6H #120 neb 02/12/17 Unknown Rx [Duoneb] Azithromycin 500 mg PO DAILY #3 tablet 02/12/17 Unknown Rx Prednisone See Taper PO DAILY #30 tablet 02/12/17 Unknown Rx - History of Present Illness-Resp Nature of Presenting Problem: Pt is 66 y/o F presents to the ED with SOB. Pt states hx of asthma. Pt states have been SOB for 4 days. Pt states cough with no sputum. Pt states home neb and inhaler is not helping. Quality of Pain: reports: tightness Severity in ED: reports: mild Onset/Duration: reports: 4 days ago Timing: reports: still present, getting worse Exposure: reports: unknown cause Cough Quality/Degree: reports: moderate, dry cough Episode Frequency: frequent episodes Current Respiratory Medication Therapy: Initiated see nurses note Modifying Factors: improves with: nothing Associated Symptoms: reports: cough, shortness of breath, wheezing. denies: chest pain/soreness, dizziness, earache, facial pain, fever/chills, flu-like symptoms, headache, heart racing, hurts to breathe, hyperventilating, lightheadedness, muscle/bodyaches, nasal congestion, nasal drainage, sinus pain , short of breath, sore throat, sweaty Similar Symptoms Previously?: Yes Recently seen or treated by another doctor?: No Review of Systems - Adult - REVIEW OF SYSTEMS - ADULT Constitutional: reports: no symptoms reported Eyes: reports: no symptoms reported Ears, Nose, Mouth & Throat: reports: no symptoms reported Cardiovascular: reports: no symptoms reported Respiratory: reports: cough, shortness of breath, wheezing Gastrointestinal: reports: no symptoms reported Genitourinary: reports: no symptoms reported Musculoskeletal: reports: no symptoms reported Integumentary: reports: no symptoms reported Neurological: reports: no symptoms reported Psychiatric: reports: no symptoms reported Endocrine: reports: no symptoms reported Hematologic/Lymphatic: reports: no symptoms reported Allergic/Immunologic: reports: no symptoms reported All Other Systems: Reviewed and Negative Past History - Adult - PAST MEDICAL HISTORY-ADULT Review of Records: reports: Nursing Assessment Review, Medications Reviewed, Social history reviewed & non-contributory. Major Childhood Illnesses: reports: denies history Cardiovascular: reports: HTN Respiratory: reports: asthma, COPD Gastrointestinal: reports: denies history Obstetrical/Gynecological: reports: denies history Genitourinary: reports: denies history Musculoskeletal: reports: denies history Neurological: reports: denies history, TIA (pt family states she had slurred speech for 1 day ) Endocrine/Immune: reports: thyroid disorder Other Conditions: reports: denies history - PRIOR SURGERIES/PROCEDURES Surgical/Procedure History: reports: hysterectomy, BTL - IMMUNIZATION STATUS Childhood Immunizations: See Nurse Assessment Flu Vaccine: See Nurse Assessment - FAMILY HISTORY Family History: reviewed, not pertinent - SOCIAL HISTORY Smoking: quit greater than 1 year, cigarettes Substance Use: denies Living Situation: family Physical Exam-General - PHYSICAL EXAM-ADULT Initial Vital Signs Reviewed: Yes - CONSTITUTIONAL General Appearance: appears well, alert, no apparent distress - EYES Eyes: PERRL/EOMI, pink conjunctivae - HEAD, EARS, NOSE, MOUTH & THROAT HENMT: normocephalic/atraumatic, moist mucous membranes, normal ENT inspection - NECK Neck: non-tender, full range of motion, supple, normal inspection - RESPIRATORY Respiratory: chest non-tender, wheezing, increased rate - CARDIOVASCULAR Cardiovascular: normal peripheral pulses, regular rate, rhythm - GASTROINTESTINAL (ABDOMEN) Abdominal Exam: normal bowel sounds, non tender, soft - LYMPHATIC Lymphatic: no adenopathy - MUSCULOSKELETAL Back Exam: normal inspection, no CVA tenderness, no vertebral tenderness Extremity: normal range of motion, non-tender, normal gait, normal inspection - SKIN Integumentary: normal color, normal turgor, warm/dry - NEUROLOGIC Neurologic: grossly normal - PSYCHIATRIC Psych/Mental Status: normal mood/affect, oriented x 3 Progress - PLAN OF CARE/RESULTS Progress/Plan/Lab Results: Orders Category Date Time Status Admit - [facility] [place] [facility] - [facility] [place] Routine [id number] 02/10/17 16:55 Ordered Activity - Bed Rest with BRP ORDERED Care 02/10/17 16:55 Completed Activity - Up with Assistance ORDERED Care 02/10/17 16:55 Active Cardiac Monitoring DIRECTED Care 02/10/17 08:34 Completed Intake and Output-Strict ORDERED Care 02/10/17 16:55 Active Nursing- Assist w/ IS as order ORDERED Care 02/10/17 16:55 Active Oxygen Therapy- ED Nursing DIRECTED Care 02/10/17 08:34 Completed Saline Loc DIRECTED Care 02/10/17 16:55 Active Saline Loc NOW Care 02/10/17 08:34 Completed Turn, Cough and Deep Breathe Q4HR.AWAKE Care 02/10/17 16:55 Active Vital Signs Order Q 4-HR ASSESS Care 02/10/17 16:55 Active Z-Document. for Tele Applied ORDERED Care 02/10/17 16:55 Completed CHEST-2 VIEWS [RAD] Stat Exams 02/10/17 08:34 Completed CBC WITH ELECTRONIC DIFF [HEME] Stat Lab 02/10/17 08:41 Completed CK PROFILE [SP CHEM] Stat Lab 02/10/17 08:41 Completed COMPREHENSIVE METABOLIC PANEL [CHEM] Stat Lab 02/10/17 08:41 Completed MAGNESIUM [CHEM] Stat Lab 02/10/17 08:41 Completed PRO B-NATRIURETIC PEPTIDE Stat Lab 02/10/17 08:41 Completed PROTIME WITH INR [COAG] Stat Lab 02/10/17 08:41 Completed PTT [COAG] Stat Lab 02/10/17 08:41 Completed TROPONIN T Stat Lab 02/10/17 08:41 Completed 0.9% Sodium Chloride Inj [Ns] 1,000 ml Med 02/10/17 16:55 Discontinued IV 75 mls/hr Acetaminophen [Tylenol] Med 02/10/17 16:55 Discontinued 650 mg PO Q6H PRN PRN Albuterol 2.5MG/Ipratrop 0.5MG [Duoneb (A & A)] Med 02/10/17 08:35 Discontinued 3 ml INH NOW ONE Albuterol 2.5MG/Ipratrop 0.5MG [Duoneb (A & A)] Med 02/10/17 14:28 Discontinued 3 ml INH NOW ONE Aspirin Med 02/10/17 08:33 Discontinued 325 mg PO STAT STA Dexamethasone [Decadron] Med 02/10/17 14:29 Discontinued 10 mg IV NOW ONE Enoxaparin [Lovenox] Med 02/10/17 16:55 Discontinued 40 mg SUBQ Q24H Methylprednisolone Sod Succ [Solu-Medrol] Med 02/10/17 16:55 Discontinued 60 mg IV Q8H Ondansetron [Zofran] Med 02/10/17 16:55 Discontinued 4 mg IV Q4H PRN PRN Aerosol Treatments Routine Ot 02/10/17 08:35 Completed Aerosol Treatments Routine Ot 02/10/17 14:29 Completed Aerosol Treatments Stat Ot 02/10/17 08:35 Completed Aerosol Treatments Stat Ot 02/10/17 14:29 Completed Incentive Spirometer Q4HR.AWAKE Ot 02/10/17 17:00 Completed Incentive Spirometer Q4HR.AWAKE [facility] 02/10/17 21:00 Completed Incentive Spirometer Q4HR.AWAKE [facility] 02/11/17 01:00 Completed Incentive Spirometer Q4HR.AWAKE [facility] 02/11/17 05:00 Completed Incentive Spirometer Q4HR.AWAKE Ot 02/11/17 09:00 Completed Incentive Spirometer Q4HR.AWAKE [facility] 02/11/17 13:00 Completed Oxygen Device Routine [facility] 02/10/17 16:55 Completed Telemetry [OM.EQ] Routine Ot 02/10/17 16:55 Active EKG [EKG] Stat Ther 02/10/17 08:25 Draft Transfer/Admit Order [TRANSFER] Routine Transfer 02/10/17 15:22 Completed Result Diagrams: 02/12/17 05:45 02/12/17 05:45 - XRAY 1 XRAY Study: Chest Impression: Normal XRAY Interpretation: stable chest Departure - Departure Date of Disposition Decision: 02/10/17 Time of Disposition Decision: 14:28 DIAGNOSIS: COPD (chronic obstructive pulmonary disease), Asthma exacerbation Disposition: HOME 01 Certified Medical Emergency: Emergent Condition: Stable - Critical Care Note This patient required my direct & personal management of CC.: Yes Total Time (mins): 20 Critical Care Statement: This patient required my direct personal management to treat or rule out processes, the absence of which, could potentiallly result in sudden, clinically significant life or limb threatening deterioration. This chart was documented by the indicated scribe, (Carla Prince Scribe) and accurately reflects the services I performed and decisions made by me, Primo Sanders MD, as attested by the provider's signature.
== END 2017-02-12 19:49 | disposition home or self-care (01) ==
LOC: ED 08:20 → 4N 16:12 → INTOOBSV 16:12
PROVIDERS: ATTEND Internal Medicine